=== PATIENT | female | born 1975 | race Caucasian/White ===

== ENCOUNTER 2017-05-01 16:50 | Emergency (ER) | payer OTHER ==
[~2017-05-01] VITALS: Ht 154.9 cm; Wt 84.9 kg
[~2017-05-01 16:50] MED LIST: ORE25 PO
[2017-05-01 17:15] VITALS: BP 110/65
--- NOTE | 2017-05-01 17:21 | NUR ---
PT AMBULATES BACK TO THE LOBBY
--- NOTE | 2017-05-01 17:30 | NUR ---
41F BIB SELF WITH C/O HEAD ACHE 9/10 SINCE NEW YEAR WITH N/V LAST WEEK, PAIN ON BOTTOM OF LT HEEL, LT EYE PAIN 9/10, LT FACE NUMBNESS/BURNING SENSATION, THROAT PAIN, SORE THROAT X 3 DAYS; PT IS AOX4, WITH STEADY GAIT. RR ARE EVEN AND UNLABORED. PT POSITIONED TO COMFORT, BED DOWN. ALL NEED MET AT THIS TIME.
[2017-05-01 17:52] VITALS: BP 113/30
--- NOTE | 2017-05-01 17:52 | NUR ---
Patient discharged with v/s stable. Written and verbal after care instructions given and explained. Patient alert, oriented and verbalized understanding of instructions. Ambulatory with to car. All questions addressed prior to discharge. ID band removed. Patient advised to follow up with PMD. Rx of Imitrex, Amoxicillin, and Naproxen given. Patient educated on indication of medication including possible reaction and side effects. Opportunity to ask questions provided and answered.
== END 2017-05-01 17:52 | disposition home or self-care (01) ==
LOC: MED 16:50
DX: J32.9 Chronic sinusitis, unspecified (principal); R05 Cough; G43.909 Migraine, unspecified, not intractable, without status migrainosus; K21.9 Gastro-esophageal reflux disease without esophagitis; I10 Essential (primary) hypertension; Z79.899 Other long term (current) drug therapy; Z88.8 Allergy status to other drugs, medicaments and biological substances
CPT/HCPCS: 99283

== ENCOUNTER 2019-04-30 10:43 | Emergency (ER) | payer OTHER ==
[~2019-04-30] VITALS: Ht 154.9 cm; Wt 81.6 kg
--- NOTE | 2019-04-30 10:48 | NUR ---
Pt ambulated to bed 6.
[2019-04-30 10:52] VITALS: BP 142/81
--- NOTE | 2019-04-30 10:54 | NUR ---
43 Y/O F C/C TAILBONE PAIN X1 WEEK, PT DENIES ANY TRAUMA OR PREVIOUS SX ON AREA. PAIN 5/10; COMES AND GOES. PER PT ALLERGIES TO DILAUDID,VITAMIN B, CODEINE. NO HX. SX GALLBLADDER REMOVAL X1 YR AGO. RX PROTONIX. NO N/V/D. SIDE RAIL X1. FAMILY AT BEDSIDE.
--- NOTE | 2019-04-30 10:56 | NUR ---
URINE CUP HANDED TO PT FOR SAMPLE
[2019-04-30 11:31] LABS: APPEARANCE,URINE HAZY (CLEAR); BILIRUBIN,URINE NEGATIVE (NEGATIVE); BLOOD, URINE NEGATIVE (NEGATIVE); COLOR,URINE YELLOW (YELLOW); LEUKOCYTE ESTERASE ,URINE NEGATIVE (NEGATIVE); NITRITE, URINE NEGATIVE (NEGATIVE); UGLUCOSE NEGATIVE (NEGATIVE)
[2019-04-30 12:20] VITALS: BP 142/81
== END 2019-04-30 12:20 | disposition home or self-care (01) ==
LOC: MED 10:43
DX: K59.00 Constipation, unspecified (principal); K21.9 Gastro-esophageal reflux disease without esophagitis; I10 Essential (primary) hypertension; M54.5 Low back pain; Z90.49 Acquired absence of other specified parts of digestive tract
CPT/HCPCS: 81003; 81025; 99283